=== PATIENT | male | born 1950 | race African-American/Black ===

== ENCOUNTER 2017-10-27 07:35 | Emergency (ER) | payer MEDICARE, OTHER, MEDICAID ==
[~2017-10-27] VITALS: Ht 177.8 cm; Wt 77.0 kg
[2017-10-27] MEDS ORDERED: ONDANSETRON 4MG ODT PO STA (08:21)
[2017-10-27] MEDS ORDERED: MORPHINE SULFATE 4 MG/ML CPJ (NOT FOR IM USE) IV STA (08:21)
[2017-10-27 08:42] LABS: BASOPHILS % 0.9 % (0.0-2.0); CHLORIDE 103 mEq/L (98-107); EOSINOPHILS % 0.1 % (0.0-5.0); HEMATOCRIT. 37.3 % (42.0-52.0); HEMOGLOBIN. 12.7 g/dL (14.0-18.0); INR 1.2; LYMPHOCYTES % 8.4 % (20.0-50.0); MEAN CORPUSCULAR HEMOGLOBIN 28.9 pg (28.0-32.0); MEAN PLATELET VOLUME 7.8 fl (7.4-10.4); MONOCYTES % 4.8 % (2.0-8.0); NEUTROPHILS % 85.8 % (40.0-76.0); PLATELET 252 x1000/uL (130-400); PROTHROMBIN TIME 12.2 sec (9.4-11.6); RED BLOOD CELL COUNT 4.39 mill/uL (4.7-6.1); RED CELL DISTRIBUTION WIDTH 15.9 % (11.6-14.6)
[2017-10-27 08:46] LABS: ETHANOL BLOOD < 10 mg/dL
[2017-10-27 10:41] LABS: CLARITY URINE CLEAR (CLEAR); COLOR URINE DARK YELLOW (YELLOW); KETONES URINE 2+ (NEGATIVE); LEUKOCYTE ESTERASE URINE 2+ (NEGATIVE); NITRITE URINE NEGATIVE (NEGATIVE); OCCULT BLOOD URINE TRACE (NEGATIVE); PROTEIN URINE 1+ (NEGATIVE); SPECIFIC GRAVITY URINE 1.018 (1.005-1.030)
[2017-10-27 10:53] LABS: *AMPHETAMINES SCREEN URINE NEGATIVE (NEGATIVE)
[2017-10-27 10:54] LABS: *BARBITURATES SCREEN URINE NEGATIVE (NEGATIVE); *BENZODIAZEPINES SCREEN URINE NEGATIVE (NEGATIVE); *COCAINE SCREEN URINE NEGATIVE (NEGATIVE); METHADONE URINE SCREEN NEGATIVE (NEGATIVE); OPIATES URINE SCREEN NEGATIVE (NEGATIVE)
[2017-10-27 10:55] LABS: CANNABINOID URINE SCREEN PRESUMTIVE POSITIVE (NEGATIVE); PHENCYCLIDINE URINE SCREEN NEGATIVE (NEGATIVE)
[2017-10-27] MEDS ORDERED: CEFTRIAXONE 1 G PREMIX 50 ML IV ONE (11:30)
[2017-10-27 13:38] VITALS: BP 114/79
[2017-10-29 08:24] LABS: CHLAMYDIA TRACHOMATIS NAA Negative (Negative); NEISSERIA GONORRHOEAE NAA Negative (Negative)
== END 2017-10-27 13:49 | disposition home or self-care (01) ==
LOC: ER 07:35
DX: N45.1 Epididymitis (principal); A59.9 Trichomoniasis, unspecified; Z98.890 Other specified postprocedural states; Z86.73 Personal history of transient ischemic attack (TIA), and cerebral infarction without residual deficits; F17.210 Nicotine dependence, cigarettes, uncomplicated
CPT/HCPCS: 36415; 76870; 80053; 80305; 81003; 83690; 85025; 85610; 87077; 87086; 87186; 87491; 87591; 93976; 96365; 96375; 99285; G0482; J0696; J2270; Q0162

== ENCOUNTER 2018-09-24 12:38 | Inpatient (IN) | payer MEDICARE, OTHER, MEDICAID ==
[~2018-09-24] VITALS: Ht 188 cm; Wt 72.6 kg
[2018-09-24] MEDS ORDERED: SODIUM CHLORIDE 0.9% 1,000 ML IV ONE (13:18)
[2018-09-24 13:39] LABS: BASOPHILS % 0.5 % (0.0-2.0); EOSINOPHILS % 0.6 % (0.0-5.0); HEMATOCRIT. 37.8 % (42.0-52.0); HEMOGLOBIN. 12.9 g/dL (14.0-18.0); MEAN CORPUSCULAR HEMOGLOBIN 29.1 pg (28.0-32.0); MEAN CORPUSCULAR VOLUME 84.9 fL (80.0-94.0); MEAN PLATELET VOLUME 9.2 fl (7.4-10.4); MONOCYTES % 4.6 % (2.0-8.0); NEUTROPHILS % 78.3 % (40.0-76.0); PLATELET 162 x1000/uL (130-400); RED BLOOD CELL COUNT 4.45 mill/uL (4.7-6.1); RED CELL DISTRIBUTION WIDTH 16.2 % (11.6-14.6)
[2018-09-24 13:50] LABS: CHLORIDE 108 mEq/L (98-107); PARTIAL THROMBOPLASTIN TIME 24.1 sec (23.4-31.0); PROTHROMBIN TIME 10.8 sec (9.6-11.0)
[2018-09-24 15:29] LABS: CLARITY URINE CLEAR (CLEAR); COLOR URINE YELLOW (YELLOW); KETONES URINE NEGATIVE (NEGATIVE); LEUKOCYTE ESTERASE URINE NEGATIVE (NEGATIVE); NITRITE URINE NEGATIVE (NEGATIVE); OCCULT BLOOD URINE NEGATIVE (NEGATIVE); PH URINE 5.5 (4.5-8.0); PROTEIN URINE NEGATIVE (NEGATIVE); SPECIFIC GRAVITY URINE 1.006 (1.005-1.030); UROBILINOGEN URINE 0.2 E.U./dL (0.2-1.0)
[2018-09-24 20:00] VITALS: BP 109/70
[2018-09-24] MEDS ORDERED: ONDANSETRON HCL 4MG/2ML INJ IV PRN (22:15)
[2018-09-24] MEDS ORDERED: NA PHOS,M-B/NA PHOS,DI-BA ENEMA 118ML PR PRN (22:15)
[2018-09-24] MEDS ORDERED: DOCUSATE SODIUM 100MG CAPSULE PO PRN (22:15)
[2018-09-24] MEDS ORDERED: HYDROCODONE/ACETAMINOPHEN 10/325MG TABLET PO PRN (22:15)
[2018-09-24] MEDS ORDERED: GUAIFENESIN 200MG/10ML SUGAR FREE UDC PO PRN (22:15)
[2018-09-24] MEDS ORDERED: MAGNESIUM/ALUMINUM HYDROXIDE/SIMETHICONE 30ML UDC PO PRN (22:15)
[2018-09-24] MEDS ORDERED: IPRATROPIUM/ALBUTEROL 0.5-3(2.5)MG/3ML NEB INH PRN (22:15)
[2018-09-24] MEDS ORDERED: LORAZEPAM 2MG/ML CPJ IV PRN (22:15)
[2018-09-24] MEDS ORDERED: DIPHENHYDRAMINE 50MG/ML VIAL IV PRN (22:15)
[2018-09-24] MEDS ORDERED: CLONIDINE 0.1MG TABLET PO PRN (22:15)
[2018-09-24] MEDS ORDERED: ACETAMINOPHEN 325MG TABLET PO PRN (22:15)
[2018-09-24] MEDS ORDERED: HYDROMORPHONE HCL/PF 2MG/ML CPJ IV PRN (22:15)
[2018-09-24] MEDS ORDERED: HYDRALAZINE 20MG/ML VIAL IV PRN (22:15)
[2018-09-24] MEDS ORDERED: DEXT 5%/0.45% NACL 1000ML 1,000 ML IV SCH (22:25)
[2018-09-24 23:00] VITALS: BP 109/70
[2018-09-24] MEDS ORDERED: ERGO2000 PO (23:52)
[2018-09-24] MEDS ORDERED: ACET-2853 PO (23:53)
[2018-09-24] MEDS ORDERED: OMEP20CA5 MT (23:54)
[2018-09-25] VITALS: BP 122/60
[2018-09-25 04:00] VITALS: BP 100/61
[2018-09-25 05:53] LABS: CHLORIDE 108 mEq/L (98-107)
[2018-09-25] MEDS ORDERED: DEXTROSE 50% WATER 50ML SYRINGE IV PRN (06:00)
[2018-09-25 06:03] LABS: LDL CHOLESTEROL 91 mg/dL (5-100)
[2018-09-25 06:04] LABS: CREATINE KINASE 268 IU/L (39-308); CREATINE KINASE MB FRACTION < 1.0 ng/mL (0.5-3.6); T4 FREE 1.03 ng/dL (0.76-1.46)
[2018-09-25 06:06] LABS: HDL CHOLESTEROL 59 mg/dL (40-59)
[2018-09-25] MEDS: SODIUM CHLORIDE 0.9% INJ 3ML FLUSH IVF SCH ×3 (06:21→21:12)
[2018-09-25 06:34] LABS: BASOPHILS % 0.6 % (0.0-2.0); EOSINOPHILS % 0.7 % (0.0-5.0); HEMATOCRIT. 34.9 % (42.0-52.0); LYMPHOCYTES % 25.6 % (20.0-50.0); MEAN CORPUSCULAR VOLUME 84.1 fL (80.0-94.0); MONOCYTES % 5.4 % (2.0-8.0); NEUTROPHILS % 67.7 % (40.0-76.0); PLATELET 158 x1000/uL (130-400); RED BLOOD CELL COUNT 4.15 mill/uL (4.7-6.1)
[2018-09-25] MEDS: INSULIN LISPRO 100 UNITS/ML SUBCUT SCH ×2 (07:15→12:15)
[2018-09-25] MEDS: BLOOD SUGAR DIAGNOSTIC STRIP TEST SCH ×4 (07:29→21:00)
[2018-09-25 08:00] VITALS: BP 111/64
[2018-09-25] MEDS: ASPIRIN 81MG EC TABLET PO SCH (09:04)
[2018-09-25] MEDS: ENOXAPARIN 40MG/0.4ML SYR SUBCUT SCH (09:05)
[2018-09-25 12:00] VITALS: BP 140/47
[2018-09-25] MEDS: SODIUM CHLORIDE 0.9% 1,000 ML IV SCH (15:54)
[2018-09-25] MEDS: ERGOCALCIFEROL 50000UNITS CAPSULE PO SCH (15:54)
[2018-09-25 15:55] LABS: CREATINE KINASE 192 IU/L (39-308)
[2018-09-25 15:56] LABS: CREATINE KINASE MB FRACTION < 1.0 ng/mL (0.5-3.6)
[2018-09-25 16:00] VITALS: BP 133/68
[2018-09-25 16:00] LABS: T4 FREE 1.02 ng/dL (0.76-1.46)
[2018-09-25] MEDS ORDERED: HYDROMORPHONE HCL/PF 2MG/ML CPJ IV PRN (16:15)
[2018-09-25] MEDS ORDERED: LEVOFLOXACIN 500MG PREMIX 100 ML IV SCH (17:00)
[2018-09-25 20:00] VITALS: BP_SYST 125; BP_SYST 135; BP_SYST 137; BP_DIAS 41; BP_DIAS 52; BP_DIAS 64
[2018-09-25] MEDS: LEVOFLOXACIN 500MG PREMIX 100 ML IV SCH (21:12)
[2018-09-26] VITALS: BP 128/54
[2018-09-26 05:11] VITALS: BP_SYST 135; BP_SYST 143; BP_SYST 153; BP_DIAS 59; BP_DIAS 61; BP_DIAS 71
[2018-09-26] MEDS: SODIUM CHLORIDE 0.9% 1,000 ML IV SCH ×2 (05:57→20:30)
[2018-09-26] MEDS: SODIUM CHLORIDE 0.9% INJ 3ML FLUSH IVF SCH ×2 (05:58→12:43)
[2018-09-26] MEDS: BLOOD SUGAR DIAGNOSTIC STRIP TEST SCH ×4 (05:58→20:33)
[2018-09-26 07:16] LABS: BASOPHILS % 0.6 % (0.0-2.0); EOSINOPHILS % 0.8 % (0.0-5.0); HEMOGLOBIN. 12.4 g/dL (14.0-18.0); LYMPHOCYTES % 27.9 % (20.0-50.0); MEAN CORPUSCULAR HEMOGLOBIN 28.4 pg (28.0-32.0); MEAN CORPUSCULAR VOLUME 84.7 fL (80.0-94.0); MEAN PLATELET VOLUME 9.9 fl (7.4-10.4); MONOCYTES % 6.2 % (2.0-8.0); NEUTROPHILS % 64.5 % (40.0-76.0); PLATELET 163 x1000/uL (130-400); RED BLOOD CELL COUNT 4.37 mill/uL (4.7-6.1)
[2018-09-26 07:27] LABS: CHLORIDE 107 mEq/L (98-107)
[2018-09-26 08:00] VITALS: BP 127/66
[2018-09-26] MEDS: ASPIRIN 81MG EC TABLET PO SCH (09:06)
[2018-09-26] MEDS: ENOXAPARIN 40MG/0.4ML SYR SUBCUT SCH (09:06)
[2018-09-26] MEDS: ERGOCALCIFEROL 50000UNITS CAPSULE PO SCH (09:06)
[2018-09-26 12:00] VITALS: BP 134/69
[2018-09-26 16:00] VITALS: BP_SYST 119; BP_SYST 142; BP_DIAS 58; BP_DIAS 59; BP_DIAS 77
[2018-09-26 20:00] VITALS: BP 129/64
[2018-09-26] MEDS: LEVOFLOXACIN 500MG PREMIX 100 ML IV SCH (20:30)
[2018-09-26 22:35] LABS: CREATINE KINASE 87 IU/L (39-308)
[2018-09-26 22:36] LABS: CREATINE KINASE MB FRACTION < 1.0 ng/mL (0.5-3.6)
[2018-09-27] VITALS: BP_SYST 125; BP_SYST 132; BP_SYST 146; BP_DIAS 46; BP_DIAS 66; BP_DIAS 77
[2018-09-27] MEDS: SODIUM CHLORIDE 0.9% INJ 3ML FLUSH IVF SCH ×3 (01:17→13:12)
[2018-09-27 04:00] VITALS: BP 122/71
[2018-09-27] MEDS: BLOOD SUGAR DIAGNOSTIC STRIP TEST SCH ×3 (06:09→16:51)
[2018-09-27 06:51] LABS: BASOPHILS % 0.7 % (0.0-2.0); CHLORIDE 109 mEq/L (98-107); EOSINOPHILS % 0.6 % (0.0-5.0); HEMATOCRIT. 36.9 % (42.0-52.0); HEMOGLOBIN. 12.5 g/dL (14.0-18.0); LYMPHOCYTES % 27.4 % (20.0-50.0); MEAN CORPUSCULAR HEMOGLOBIN 28.8 pg (28.0-32.0); MEAN CORPUSCULAR VOLUME 85.1 fL (80.0-94.0); MEAN PLATELET VOLUME 9.8 fl (7.4-10.4); MONOCYTES % 6.1 % (2.0-8.0); NEUTROPHILS % 65.2 % (40.0-76.0); PLATELET 165 x1000/uL (130-400); RED BLOOD CELL COUNT 4.34 mill/uL (4.7-6.1); RED CELL DISTRIBUTION WIDTH 16.4 % (11.6-14.6)
[2018-09-27 08:00] VITALS: BP 129/63
[2018-09-27] MEDS: ERGOCALCIFEROL 50000UNITS CAPSULE PO SCH (09:23)
[2018-09-27] MEDS: ASPIRIN 81MG EC TABLET PO SCH (09:23)
[2018-09-27] MEDS: ENOXAPARIN 40MG/0.4ML SYR SUBCUT SCH (09:24)
[2018-09-27] MEDS: SODIUM CHLORIDE 0.9% 1,000 ML IV SCH (11:04)
[2018-09-27 12:00] VITALS: BP_SYST 116; BP_SYST 117; BP_SYST 154; BP_DIAS 58; BP_DIAS 59; BP_DIAS 72
[2018-09-27 16:00] VITALS: BP 140/60
[2018-09-27 18:03] VITALS: BP 145/66
[2018-09-28] MEDS ORDERED: ERGOCALCIFEROL 50000UNITS CAPSULE PO SCH (09:00)
== END 2018-09-27 19:45 | disposition home or self-care (01) | DRG 73 ==
LOC: ER 12:38 → 5WST 18:19 → EDBEDREQ 18:23 → EDBEDREQTM 18:25 → ENRESERV 20:23
PROVIDERS: ADMIT Internal Medicine; ATTEND Internal Medicine
DX: G90.8 Other disorders of autonomic nervous system (principal); I50.33 Acute on chronic diastolic (congestive) heart failure; I67.82 Cerebral ischemia; N39.0 Urinary tract infection, site not specified; I47.2 Ventricular tachycardia; R00.1 Bradycardia, unspecified; E16.2 Hypoglycemia, unspecified; D64.9 Anemia, unspecified; I11.0 Hypertensive heart disease with heart failure; B96.20 Unspecified Escherichia coli [E. coli] as the cause of diseases classified elsewhere; E86.0 Dehydration; M19.90 Unspecified osteoarthritis, unspecified site; M75.102 Unspecified rotator cuff tear or rupture of left shoulder, not specified as traumatic; F17.200 Nicotine dependence, unspecified, uncomplicated; Z86.73 Personal history of transient ischemic attack (TIA), and cerebral infarction without residual deficits; Z87.11 Personal history of peptic ulcer disease; Z79.899 Other long term (current) drug therapy; Z88.6 Allergy status to analgesic agent; Z91.011 Allergy to milk products
CPT/HCPCS: 36415; 71045; 73030; 80048; 80061; 82550; 82553; 82962; 83036; 83735; 83880; 84132; 84153; 84439; 84443; 84484; 85379; 87077; 87186; 93005; 93306; 93970; 96360; 97162; 99285; J1650; J1956; J7030; G0103

== ENCOUNTER 2021-01-08 10:24 | Inpatient (IN) | payer MEDICARE, MEDICAID, OTHER ==
[~2021-01-08] VITALS: Ht 182.9 cm; Wt 70.8 kg
[~2021-01-08 10:24] MED LIST: ERGO2000 PO
[2021-01-08 10:59] LABS: BASOPHILS % 0.5 % (0.0-2.0); EOSINOPHILS % 0.1 % (0.0-5.0); HEMATOCRIT. 40.5 % (42.0-52.0); HEMOGLOBIN. 13.6 g/dL (14.0-18.0); MEAN CORPUSCULAR HEMOGLOBIN 29.6 pg (28.0-32.0); MEAN CORPUSCULAR VOLUME 88.1 fL (80.0-94.0); MONOCYTES % 6.8 % (2.0-8.0); NEUTROPHILS % 84.6 % (40.0-76.0); PLATELET 197 x1000/uL (130-400); RED CELL DISTRIBUTION WIDTH 17.1 % (11.6-14.6)
[2021-01-08] MEDS ORDERED: MORPHINE SULFATE 4 MG/ML CPJ (NOT FOR IM USE) IV ONE (11:00)
[2021-01-08 11:15] LABS: CHLORIDE 107 mEq/L (98-107)
[2021-01-08] MEDS ORDERED: MORPHINE SULFATE 2 MG/ML CPJ (NOT FOR IM USE) IV ONE (11:15)
[2021-01-08] MEDS ORDERED: AMLODIPINE 5MG TABLET PO SCH (14:00)
[2021-01-08] MEDS ORDERED: ASPIRIN 81MG EC TABLET PO SCH (14:15)
[2021-01-08] MEDS ORDERED: IOHEXOL-350 100 ML BOTTLE ONE (14:15)
[2021-01-08] MEDS ORDERED: IPRATROPIUM/ALBUTEROL 0.5-3(2.5)MG/3ML NEB HHN PRN (16:15)
[2021-01-08] MEDS ORDERED: ACETAMINOPHEN 325MG TABLET PO PRN (16:15)
[2021-01-08] MEDS ORDERED: ONDANSETRON HCL 4MG/2ML INJ IV PRN (16:15)
[2021-01-08] MEDS ORDERED: LEVOFLOXACIN 500MG PREMIX 100 ML IV SCH (17:00)
[2021-01-08] MEDS ORDERED: NALOXONE HCL 0.4MG/ML VIAL IV PRN (17:15)
[2021-01-08 17:21] LABS: *AMPHETAMINES SCREEN URINE NEGATIVE (NEGATIVE); *BARBITURATES SCREEN URINE NEGATIVE (NEGATIVE); *BENZODIAZEPINES SCREEN URINE NEGATIVE (NEGATIVE); *COCAINE SCREEN URINE NEGATIVE (NEGATIVE)
[2021-01-08 17:22] LABS: CANNABINOID URINE SCREEN PRESUMTIVE POSITIVE (NEGATIVE); METHADONE URINE SCREEN NEGATIVE (NEGATIVE); OPIATES URINE SCREEN PRESUMTIVE POSITIVE (NEGATIVE); PHENCYCLIDINE URINE SCREEN NEGATIVE (NEGATIVE)
[2021-01-08] MEDS ORDERED: ATOR10TA69 PO (18:20)
[2021-01-08] MEDS ORDERED: ASPI-1497 PO (18:20)
[2021-01-08] MEDS ORDERED: OMEP20CA14 PO (18:20)
[2021-01-08 18:27] VITALS: BP 173/76
[2021-01-08 20:00] VITALS: BP 122/51
[2021-01-08] MEDS ORDERED: CLONIDINE 0.1MG TABLET PO PRN (20:15)
[2021-01-08] MEDS ORDERED: TRAMADOL 50MG TABLET PO PRN (20:15)
[2021-01-08] MEDS: LEVOFLOXACIN 500MG PREMIX 100 ML IV SCH (22:46)
[2021-01-09] VITALS: BP 126/55
[2021-01-09] MEDS ORDERED: CHOL500010 PO (02:42)
[2021-01-09 04:00] VITALS: BP 127/53
[2021-01-09 06:48] LABS: HEMATOCRIT. 39.5 % (42.0-52.0); HEMOGLOBIN. 13.3 g/dL (14.0-18.0); MEAN CORPUSCULAR HEMOGLOBIN 29.7 pg (28.0-32.0); MEAN CORPUSCULAR VOLUME 88.2 fL (80.0-94.0); MEAN PLATELET VOLUME 9.7 fl (7.4-10.4); PLATELET 193 x1000/uL (130-400); RED BLOOD CELL COUNT 4.48 mill/uL (4.7-6.1); RED CELL DISTRIBUTION WIDTH 16.9 % (11.6-14.6)
[2021-01-09 07:01] LABS: CHLORIDE 105 mEq/L (98-107)
[2021-01-09 07:14] LABS: LDL CHOLESTEROL 148 mg/dL (5-100)
[2021-01-09 07:18] LABS: HDL CHOLESTEROL 61 mg/dL (40-59)
[2021-01-09 08:00] VITALS: BP 143/74
[2021-01-09] MEDS: ENOXAPARIN 40MG/0.4ML SYR SUBCUT SCH (09:23)
[2021-01-09] MEDS: AMLODIPINE 5MG TABLET PO SCH (09:23)
[2021-01-09] MEDS: HYDROCODONE/ACETAMINOPHEN 5/325MG TABLET PO PRN (09:24)
[2021-01-09] MEDS: ASPIRIN 81MG EC TABLET PO SCH (11:09)
[2021-01-09 12:00] VITALS: BP 125/82
[2021-01-09] MEDS ORDERED: METOPROLOL TARTRATE 25MG TABLET PO SCH (12:00)
[2021-01-09 16:00] VITALS: BP 118/64
[2021-01-09] MEDS: CLONIDINE 0.1MG TABLET PO SCH ×2 (16:03→20:51)
[2021-01-09 18:32] LABS: PLATELET ESTIMATE NORMAL
[2021-01-09 19:35] LABS: CLARITY URINE CLEAR (CLEAR); COLOR URINE DARK YELLOW (YELLOW); KETONES URINE 2+ (NEGATIVE); LEUKOCYTE ESTERASE URINE TRACE (NEGATIVE); NITRITE URINE NEGATIVE (NEGATIVE); OCCULT BLOOD URINE NEGATIVE (NEGATIVE); PH URINE 5.5 (4.5-8.0); PROTEIN URINE 1+ (NEGATIVE); SPECIFIC GRAVITY URINE 1.019 (1.005-1.030); UROBILINOGEN URINE 0.2 E.U./dL (0.2-1.0)
[2021-01-09 20:00] VITALS: BP 125/62
[2021-01-09] MEDS: FAMOTIDINE 20MG TABLET PO SCH (20:50)
[2021-01-09] MEDS: LEVOFLOXACIN 500MG PREMIX 100 ML IV SCH (20:51)
[2021-01-09] MEDS: ATORVASTATIN CALCIUM 10MG TABLET PO SCH (20:51)
[2021-01-09] MEDS: METOPROLOL TARTRATE 25MG TABLET PO SCH (20:51)
[2021-01-10] VITALS: BP 102/49
[2021-01-10 04:00] VITALS: BP 101/48
[2021-01-10] MEDS: CLONIDINE 0.1MG TABLET PO SCH ×3 (05:14→21:13)
[2021-01-10 07:06] LABS: CHLORIDE 101 mEq/L (98-107)
[2021-01-10 07:42] LABS: HEMATOCRIT. 38.4 % (42.0-52.0); HEMOGLOBIN. 12.8 g/dL (14.0-18.0); MEAN CORPUSCULAR HEMOGLOBIN 29.6 pg (28.0-32.0); MEAN CORPUSCULAR VOLUME 88.7 fL (80.0-94.0); MEAN PLATELET VOLUME 10.9 fl (7.4-10.4); PLATELET 215 x1000/uL (130-400); RED BLOOD CELL COUNT 4.33 mill/uL (4.7-6.1); RED CELL DISTRIBUTION WIDTH 16.8 % (11.6-14.6)
[2021-01-10 08:00] VITALS: BP 134/59
[2021-01-10] MEDS: ASPIRIN 81MG EC TABLET PO SCH (09:24)
[2021-01-10] MEDS: AMLODIPINE 5MG TABLET PO SCH (09:24)
[2021-01-10] MEDS: METOPROLOL TARTRATE 25MG TABLET PO SCH ×2 (09:24→21:14)
[2021-01-10] MEDS: ENOXAPARIN 40MG/0.4ML SYR SUBCUT SCH (09:25)
[2021-01-10 12:00] VITALS: BP 131/67
[2021-01-10 16:00] VITALS: BP 113/60
[2021-01-10] MEDS: METOCLOPRAMIDE HCL 10MG/2ML VIAL IV SCH ×2 (17:00→23:11)
[2021-01-10 17:23] LABS: PLATELET ESTIMATE NORMAL
[2021-01-10 20:00] VITALS: BP 143/46
[2021-01-10 20:32] LABS: CLARITY URINE CLEAR (CLEAR); COLOR URINE ORANGE (YELLOW); KETONES URINE 1+ (NEGATIVE); LEUKOCYTE ESTERASE URINE TRACE (NEGATIVE); NITRITE URINE NEGATIVE (NEGATIVE); OCCULT BLOOD URINE NEGATIVE (NEGATIVE); PH URINE 5.5 (4.5-8.0); PROTEIN URINE 1+ (NEGATIVE); SPECIFIC GRAVITY URINE 1.018 (1.005-1.030)
[2021-01-10] MEDS: FAMOTIDINE 20MG TABLET PO SCH (21:13)
[2021-01-10] MEDS: ATORVASTATIN CALCIUM 10MG TABLET PO SCH (21:13)
[2021-01-10] MEDS: LEVOFLOXACIN 500MG PREMIX 100 ML IV SCH (21:14)
[2021-01-11] VITALS (7 sets, daily range): BP systolic 96–134; BP diastolic 43–91
[2021-01-11] MEDS: METOCLOPRAMIDE HCL 10MG/2ML VIAL IV SCH ×4 (06:15→23:04)
[2021-01-11] MEDS: CLONIDINE 0.1MG TABLET PO SCH (06:16)
[2021-01-11 07:23] LABS: HEMATOCRIT. 36.9 % (42.0-52.0); HEMOGLOBIN. 12.3 g/dL (14.0-18.0); MEAN CORPUSCULAR HEMOGLOBIN 29.4 pg (28.0-32.0); MEAN CORPUSCULAR VOLUME 88.3 fL (80.0-94.0); MEAN PLATELET VOLUME 10.1 fl (7.4-10.4); PLATELET 210 x1000/uL (130-400); RED BLOOD CELL COUNT 4.18 mill/uL (4.7-6.1); RED CELL DISTRIBUTION WIDTH 17.3 % (11.6-14.6)
[2021-01-11 08:39] LABS: CHLORIDE 102 mEq/L (98-107)
[2021-01-11] MEDS: METOPROLOL TARTRATE 25MG TABLET PO SCH ×2 (09:00→21:28)
[2021-01-11] MEDS: AMLODIPINE 5MG TABLET PO SCH (09:00)
[2021-01-11] MEDS: ASPIRIN 81MG EC TABLET PO SCH (09:35)
[2021-01-11] MEDS: ENOXAPARIN 40MG/0.4ML SYR SUBCUT SCH (09:36)
[2021-01-11] MEDS: HYDROCODONE/ACETAMINOPHEN 5/325MG TABLET PO PRN ×2 (10:30→17:41)
[2021-01-11 13:08] LABS: PLATELET ESTIMATE NORMAL
[2021-01-11 13:42] LABS: BG BASE EXCESS 1.4 mmol/L (-2.0-2.0); BG CARBOXYHEMOGLOBIN 0.5 % (0.5-1.5); BG DEOXYHEMOGLOBIN 6.2 % (0.0-5.0); BG HCO3 ACT 24.8 mmol/L (22.0-26.0); BG METHEMOGLOBIN 0.3 % (0.0-1.5); BG OXYGEN SATURATION 93.8 % (92.0-98.5); BG PCO2 35.2 mmHg (35.0-45.0); BG PH 7.466 (7.350-7.450); BG PO2 69.1 mmHg (75.0-100.0); BG SAMPLE SITE RIGHT RADIAL; BG TOTAL HEMOGLOBIN 13.3 g/dL (12.0-18.0); BG VENT MODE ROOM AIR
[2021-01-11] MEDS ORDERED: IPRATROPIUM/ALBUTEROL 0.5-3(2.5)MG/3ML NEB HHN SCH (15:00)
[2021-01-11] MEDS: LEVOFLOXACIN 500MG PREMIX 100 ML IV SCH (21:27)
[2021-01-11] MEDS: FAMOTIDINE 20MG TABLET PO SCH (21:27)
[2021-01-11] MEDS: ATORVASTATIN CALCIUM 10MG TABLET PO SCH (21:28)
[2021-01-12] VITALS: BP 112/66
[2021-01-12 04:00] VITALS: BP 116/59
[2021-01-12] MEDS: METOCLOPRAMIDE HCL 10MG/2ML VIAL IV SCH ×2 (06:26→12:06)
[2021-01-12 08:00] VITALS: BP 126/59
[2021-01-12 08:15] LABS: HEMATOCRIT. 34.7 % (42.0-52.0); HEMOGLOBIN. 11.8 g/dL (14.0-18.0); MEAN CORPUSCULAR HEMOGLOBIN 29.5 pg (28.0-32.0); MEAN CORPUSCULAR VOLUME 87.3 fL (80.0-94.0); MEAN PLATELET VOLUME 10.1 fl (7.4-10.4); PLATELET 275 x1000/uL (130-400); RED BLOOD CELL COUNT 3.98 mill/uL (4.7-6.1); RED CELL DISTRIBUTION WIDTH 16.7 % (11.6-14.6)
[2021-01-12] MEDS: ASPIRIN 81MG EC TABLET PO SCH (08:26)
[2021-01-12] MEDS: METOPROLOL TARTRATE 25MG TABLET PO SCH (08:27)
[2021-01-12] MEDS: ENOXAPARIN 40MG/0.4ML SYR SUBCUT SCH (08:27)
[2021-01-12 08:44] LABS: CHLORIDE 102 mEq/L (98-107)
[2021-01-12] MEDS ORDERED: AMLODIPINE 2.5MG TABLET PO SCH (09:00)
[2021-01-12 11:58] LABS: PLATELET ESTIMATE NORMAL
[2021-01-12 12:00] VITALS: BP 127/64
[2021-01-12] MEDS ORDERED: ALBU90AE INH (12:23)
[2021-01-12] MEDS ORDERED: LEVO500T89 MT (12:23)
[2021-01-12] MEDS ORDERED: LIP40 MT (12:23)
[2021-01-12] MEDS ORDERED: METO25TA6 MT (12:23)
[2021-01-12 13:24] VITALS: BP 127/64
[2021-01-12] MEDS ORDERED: ATORVASTATIN CALCIUM 40MG TABLET PO SCH (21:00)
== END 2021-01-12 14:21 | disposition home health service (06) | DRG 205 ==
LOC: ER 10:24 → EDBEDREQTM 12:50 → EDBEDREQ 12:50 → ENRESERV 13:51 → 7EST 18:12
PROVIDERS: ADMIT Internal Medicine; ATTEND Internal Medicine
DX: M94.0 Chondrocostal junction syndrome [Tietze] (principal); J18.9 Pneumonia, unspecified organism; J44.0 Chronic obstructive pulmonary disease with (acute) lower respiratory infection; N39.0 Urinary tract infection, site not specified; R65.10 Systemic inflammatory response syndrome (SIRS) of non-infectious origin without acute organ dysfunction; D35.02 Benign neoplasm of left adrenal gland; E78.5 Hyperlipidemia, unspecified; I10 Essential (primary) hypertension; I25.10 Atherosclerotic heart disease of native coronary artery without angina pectoris; K80.20 Calculus of gallbladder without cholecystitis without obstruction; Z20.822 Contact with and (suspected) exposure to COVID-19; F17.210 Nicotine dependence, cigarettes, uncomplicated; M48.02 Spinal stenosis, cervical region; M47.812 Spondylosis without myelopathy or radiculopathy, cervical region; M51.24 Other intervertebral disc displacement, thoracic region; R00.0 Tachycardia, unspecified; I95.9 Hypotension, unspecified; M48.04 Spinal stenosis, thoracic region; G89.29 Other chronic pain; Z86.718 Personal history of other venous thrombosis and embolism; Z86.73 Personal history of transient ischemic attack (TIA), and cerebral infarction without residual deficits; Z87.11 Personal history of peptic ulcer disease; Z88.5 Allergy status to narcotic agent; Z88.6 Allergy status to analgesic agent; Z91.011 Allergy to milk products; Z79.899 Other long term (current) drug therapy; Z79.82 Long term (current) use of aspirin; Z82.49 Family history of ischemic heart disease and other diseases of the circulatory system
CPT/HCPCS: 36415; 36600; 71045; 71275; 72128; 72131; 72141; 72146; 74018; 74176; 80048; 80053; 80061; 80305; 81003; 82375; 82805; 83880; 84145; 84153; 84484; 85025; 87426; 93005; 93306; 93970; 97116; 97162; 99285; J1650; J1956; J2270; J2765; J7040; Q9967; U0003; U0005; G0103

== ENCOUNTER 2021-09-12 05:11 | Inpatient (IN) | payer MEDICARE, MEDICAID, OTHER ==
[~2021-09-12] VITALS: Ht 188 cm; Wt 72.1 kg
[2021-09-12] VITALS (33 sets, daily range): BP systolic 65–150; BP diastolic 23–79
[~2021-09-12 05:11] MED LIST changes: +ALBU90AE INH; +ASPI-1497 PO; +CHOL500010 PO; -ERGO2000 PO; +LEVO500T90 MT; +LIP40 MT; +METO25TA6 MT; +OMEP20CA14 PO
[2021-09-12] MEDS ORDERED: THROMBIN (BOVINE) 5000 UNITS/VIAL TOP ONE ×2 (06:54→06:55)
[2021-09-12] MEDS ORDERED: GENTAMICIN SULF 40MG/ML 2ML VIAL ONE (06:55)
[2021-09-12] MEDS ORDERED: BACITRACIN 15GM TUBE TOP ONE (06:55)
[2021-09-12] MEDS ORDERED: LIDOCAINE HCL/EPINEPHRINE 1%-EPI 1:100,000 20 ML VIAL ONE (06:55)
[2021-09-12] MEDS ORDERED: ACET-2708 MT (09:01)
[2021-09-12] MEDS ORDERED: ONDANSETRON HCL 4MG/2ML INJ IV PRN ×2 (11:45→14:15)
[2021-09-12] MEDS ORDERED: NALOXONE HCL 0.4MG/ML VIAL IV PRN (12:00)
[2021-09-12] MEDS ORDERED: ETOMIDATE 2MG/ML 10ML VIAL IV ONE (12:17)
[2021-09-12] MEDS ORDERED: NEOSTIGMINE METHYLSULFATE 1MG/ML 10 ML VIAL ONE (12:17)
[2021-09-12] MEDS ORDERED: SUCCINYLCHOLINE CHLORIDE 200MG/10ML IV ONE (12:17)
[2021-09-12] MEDS ORDERED: DEXAMETHASONE 4MG/ML 1ML VIAL ONE (12:17)
[2021-09-12] MEDS ORDERED: ROCURONIUM BROMIDE 10MG/ML VIAL 5ML IV ONE (12:17)
[2021-09-12] MEDS ORDERED: ONDANSETRON HCL 4MG/2ML INJ ONE (12:17)
[2021-09-12] MEDS ORDERED: MIDAZOLAM HCL 2 MG/2 ML VIAL ONE (12:18)
[2021-09-12] MEDS ORDERED: GLYCOPYRROLATE 0.2 MG/ML 2ML VIAL ONE ×2 (12:18)
[2021-09-12] MEDS ORDERED: FENTANYL CITRATE/PF 50MCG/ML 2ML VIAL ONE (12:19)
[2021-09-12] MEDS ORDERED: PROPOFOL 200MG/20ML VIAL IV ONE ×2 (12:41→13:18)
[2021-09-12] MEDS ORDERED: CEFAZOLIN SODIUM 1000MG/VIAL IV SCH (14:00)
[2021-09-12] MEDS ORDERED: LABETALOL 5MG/ML SYR 20 MG/4 ML SYRINGE IV PRN (14:15)
[2021-09-12] MEDS ORDERED: MEPERIDINE HCL/PF 25MG/ML CPJ IV PRN (14:15)
[2021-09-12] MEDS: HYDROMORPHONE HCL/PF 2MG/ML CPJ IV PRN ×4 (14:23→14:44)
[2021-09-12] MEDS: DEXT 5%/LACTATED RINGERS 1,000 ML IV SCH ×2 (15:00→22:08)
[2021-09-12] MEDS: NICARDIPINE 100 MG in SODIUM CHLORIDE 0.9% 60 ML IV PRN ×2 (16:30→23:53)
[2021-09-12] MEDS: CEFAZOLIN 1000MG PREMIX 50 ML IV SCH ×2 (17:03→23:53)
[2021-09-12] MEDS: MORPHINE SULFATE 4 MG/ML CPJ (NOT FOR IM USE) IV PRN (22:09)
[2021-09-12 22:54] LABS: CLARITY URINE CLEAR (CLEAR); COLOR URINE YELLOW (YELLOW); KETONES URINE NEGATIVE (NEGATIVE); LEUKOCYTE ESTERASE URINE TRACE (NEGATIVE); NITRITE URINE NEGATIVE (NEGATIVE); OCCULT BLOOD URINE NEGATIVE (NEGATIVE); PROTEIN URINE NEGATIVE (NEGATIVE); SPECIFIC GRAVITY URINE 1.013 (1.005-1.030); UROBILINOGEN URINE 0.2 E.U./dL (0.2-1.0)
[2021-09-13] VITALS (95 sets, daily range): BP systolic 96–138; BP diastolic 37–89
[2021-09-13] MEDS: MORPHINE SULFATE 4 MG/ML CPJ (NOT FOR IM USE) IV PRN ×5 (05:18→20:25)
[2021-09-13 05:32] LABS: BASOPHILS % 0.5 % (0.0-2.0); HEMATOCRIT. 37.1 % (42.0-52.0); HEMOGLOBIN. 12.4 g/dL (14.0-18.0); LYMPHOCYTES % 8.5 % (20.0-50.0); MEAN PLATELET VOLUME 11.1 fl (7.4-10.4); MONOCYTES % 5.6 % (2.0-8.0); NEUTROPHILS % 85.4 % (40.0-76.0); PLATELET 205 x1000/uL (130-400); RED BLOOD CELL COUNT 4.59 mill/uL (4.7-6.1); RED CELL DISTRIBUTION WIDTH 16.6 % (11.6-14.6)
[2021-09-13 05:45] LABS: CHLORIDE 108 mEq/L (98-107); PHOSPHORUS 2.9 mg/dL (2.5-4.9)
[2021-09-13 05:52] LABS: INR 1.1; PARTIAL THROMBOPLASTIN TIME 26.3 sec (23.4-31.0); PROTHROMBIN TIME 11.6 sec (9.6-11.0)
[2021-09-13] MEDS: DEXT 5%/LACTATED RINGERS 1,000 ML IV SCH ×2 (08:20→15:17)
[2021-09-13] MEDS: NICARDIPINE 100 MG in SODIUM CHLORIDE 0.9% 60 ML IV PRN (08:21)
[2021-09-13] MEDS: CEFAZOLIN 1000MG PREMIX 50 ML IV SCH (11:30)
[2021-09-13] MEDS: OMEPRAZOLE 20MG CAPSULE EXTENDED RELEASE PO SCH (11:31)
[2021-09-13] MEDS: AMLODIPINE 5MG TABLET PO SCH (11:31)
[2021-09-13] MEDS: METOPROLOL TARTRATE 25MG TABLET PO SCH ×2 (11:32→20:11)
[2021-09-13] MEDS ORDERED: POTASSIUM CHLORIDE 20MEQ/PACKET PO NR (15:30)
[2021-09-13] MEDS: ATORVASTATIN CALCIUM 40MG TABLET PO SCH (20:11)
[2021-09-14] VITALS (41 sets, daily range): BP systolic 113–134; BP diastolic 47–76
[2021-09-14] MEDS: DEXT 5%/LACTATED RINGERS 1,000 ML IV SCH ×2 (04:29→15:40)
[2021-09-14 05:16] LABS: BASOPHILS % 0.5 % (0.0-2.0); EOSINOPHILS % 0.3 % (0.0-5.0); HEMATOCRIT. 35.1 % (42.0-52.0); HEMOGLOBIN. 11.7 g/dL (14.0-18.0); LYMPHOCYTES % 11.4 % (20.0-50.0); MEAN CORPUSCULAR HEMOGLOBIN 27.2 pg (28.0-32.0); MEAN CORPUSCULAR VOLUME 81.5 fL (80.0-94.0); MONOCYTES % 6.9 % (2.0-8.0); NEUTROPHILS % 80.9 % (40.0-76.0); PLATELET 169 x1000/uL (130-400); RED BLOOD CELL COUNT 4.31 mill/uL (4.7-6.1); RED CELL DISTRIBUTION WIDTH 16.6 % (11.6-14.6)
[2021-09-14 05:30] LABS: CHLORIDE 106 mEq/L (98-107)
[2021-09-14] MEDS: MORPHINE SULFATE 4 MG/ML CPJ (NOT FOR IM USE) IV PRN ×2 (05:47→08:35)
[2021-09-14] MEDS: METOPROLOL TARTRATE 25MG TABLET PO SCH ×2 (08:33→20:54)
[2021-09-14] MEDS: OMEPRAZOLE 20MG CAPSULE EXTENDED RELEASE PO SCH (08:34)
[2021-09-14] MEDS: AMLODIPINE 5MG TABLET PO SCH (08:34)
[2021-09-14] MEDS: ATORVASTATIN CALCIUM 40MG TABLET PO SCH (20:54)
[2021-09-15] VITALS: BP 130/77
[2021-09-15 04:00] VITALS: BP 114/58
[2021-09-15] MEDS: OMEPRAZOLE 20MG CAPSULE EXTENDED RELEASE PO SCH (06:23)
[2021-09-15 08:00] VITALS: BP 117/62
[2021-09-15] MEDS: METOPROLOL TARTRATE 25MG TABLET PO SCH ×2 (08:35→21:00)
[2021-09-15] MEDS: AMLODIPINE 5MG TABLET PO SCH (08:35)
[2021-09-15] MEDS ORDERED: BENZONATATE 100MG CAPSULE PO PRN (11:00)
[2021-09-15 12:00] VITALS: BP 121/53
[2021-09-15] MEDS: GUAIFENESIN 600MG ER TABLET PO SCH ×2 (12:52→21:57)
[2021-09-15 16:00] VITALS: BP 119/64
[2021-09-15] MEDS: POLYETHYLENE GLYCOL 3350 (17GM) 1 DOSE PACK PO SCH (16:35)
[2021-09-15 20:00] VITALS: BP 105/58
[2021-09-15] MEDS: ATORVASTATIN CALCIUM 40MG TABLET PO SCH (21:57)
[2021-09-16] VITALS: BP 128/62
[2021-09-16 04:00] VITALS: BP 125/65
[2021-09-16] MEDS: OMEPRAZOLE 20MG CAPSULE EXTENDED RELEASE PO SCH (06:50)
[2021-09-16 08:00] VITALS: BP 103/58
[2021-09-16] MEDS: CLOTRIMAZOLE/BETAMETHASONE 1/0.05% CREAM 15GM TOP SCH ×2 (08:41→22:24)
[2021-09-16] MEDS: GUAIFENESIN 600MG ER TABLET PO SCH ×2 (08:41→22:24)
[2021-09-16] MEDS: POLYETHYLENE GLYCOL 3350 (17GM) 1 DOSE PACK PO SCH (08:41)
[2021-09-16] MEDS: AMLODIPINE 5MG TABLET PO SCH (08:42)
[2021-09-16] MEDS: METOPROLOL TARTRATE 25MG TABLET PO SCH ×2 (08:42→22:23)
[2021-09-16 12:00] VITALS: BP 113/57
[2021-09-16 16:00] VITALS: BP 109/61
[2021-09-16] MEDS ORDERED: BISACODYL 5MG TABLET PO PRN (17:30)
[2021-09-16] MEDS ORDERED: LACTULOSE 20G/30ML UDC PO PRN (17:30)
[2021-09-16 20:00] VITALS: BP 126/61
[2021-09-16] MEDS: ATORVASTATIN CALCIUM 40MG TABLET PO SCH (22:23)
[2021-09-17] VITALS: BP 117/65
[2021-09-17 04:00] VITALS: BP 110/69
[2021-09-17] MEDS: OMEPRAZOLE 20MG CAPSULE EXTENDED RELEASE PO SCH (07:30)
[2021-09-17 08:00] VITALS: BP 129/61
[2021-09-17] MEDS: POLYETHYLENE GLYCOL 3350 (17GM) 1 DOSE PACK PO SCH (09:00)
[2021-09-17] MEDS: GUAIFENESIN 600MG ER TABLET PO SCH ×2 (09:01→22:00)
[2021-09-17] MEDS: AMLODIPINE 5MG TABLET PO SCH (09:01)
[2021-09-17] MEDS: METOPROLOL TARTRATE 25MG TABLET PO SCH ×2 (09:02→22:00)
[2021-09-17] MEDS: CLOTRIMAZOLE/BETAMETHASONE 1/0.05% CREAM 15GM TOP SCH ×2 (09:03→22:01)
[2021-09-17 12:00] VITALS: BP 120/56
[2021-09-17 16:00] VITALS: BP 111/57
[2021-09-17 17:14] LABS: BASOPHILS % 0.6 % (0.0-2.0); EOSINOPHILS % 1.6 % (0.0-5.0); HEMATOCRIT. 34.9 % (42.0-52.0); HEMOGLOBIN. 11.5 g/dL (14.0-18.0); LYMPHOCYTES % 13.9 % (20.0-50.0); MEAN CORPUSCULAR HEMOGLOBIN 27.1 pg (28.0-32.0); MEAN CORPUSCULAR VOLUME 82.3 fL (80.0-94.0); MEAN PLATELET VOLUME 10.6 fl (7.4-10.4); NEUTROPHILS % 77.9 % (40.0-76.0); PLATELET 203 x1000/uL (130-400); RED BLOOD CELL COUNT 4.24 mill/uL (4.7-6.1); RED CELL DISTRIBUTION WIDTH 16.6 % (11.6-14.6)
[2021-09-17 17:29] LABS: CHLORIDE 103 mEq/L (98-107)
[2021-09-17 20:00] VITALS: BP 128/65
[2021-09-17] MEDS: ATORVASTATIN CALCIUM 40MG TABLET PO SCH (22:00)
[2021-09-18] VITALS: BP_SYST 107; BP_SYST 124; BP_DIAS 52; BP_DIAS 67
[2021-09-18 04:00] VITALS: BP 123/51
[2021-09-18 08:00] VITALS: BP 123/57
[2021-09-18 08:33] LABS: BASOPHILS % 0.8 % (0.0-2.0); EOSINOPHILS % 1.7 % (0.0-5.0); HEMATOCRIT. 35.8 % (42.0-52.0); HEMOGLOBIN. 11.9 g/dL (14.0-18.0); LYMPHOCYTES % 14.8 % (20.0-50.0); MEAN CORPUSCULAR HEMOGLOBIN 26.8 pg (28.0-32.0); MEAN CORPUSCULAR VOLUME 80.3 fL (80.0-94.0); MEAN PLATELET VOLUME 9.9 fl (7.4-10.4); MONOCYTES % 5.3 % (2.0-8.0); NEUTROPHILS % 77.4 % (40.0-76.0); PLATELET 219 x1000/uL (130-400); RED BLOOD CELL COUNT 4.46 mill/uL (4.7-6.1); RED CELL DISTRIBUTION WIDTH 16.3 % (11.6-14.6)
[2021-09-18 08:45] LABS: CHLORIDE 102 mEq/L (98-107)
[2021-09-18 08:51] LABS: HDL CHOLESTEROL 33 mg/dL (40-59); LDL CHOLESTEROL 105 mg/dL (5-100)
[2021-09-18] MEDS: POLYETHYLENE GLYCOL 3350 (17GM) 1 DOSE PACK PO SCH (09:36)
[2021-09-18] MEDS: OMEPRAZOLE 20MG CAPSULE EXTENDED RELEASE PO SCH (09:36)
[2021-09-18] MEDS: AMLODIPINE 5MG TABLET PO SCH (09:37)
[2021-09-18] MEDS: GUAIFENESIN 600MG ER TABLET PO SCH ×2 (09:37→21:38)
[2021-09-18] MEDS: METOPROLOL TARTRATE 25MG TABLET PO SCH ×2 (09:37→21:38)
[2021-09-18] MEDS: CLOTRIMAZOLE/BETAMETHASONE 1/0.05% CREAM 15GM TOP SCH ×2 (09:43→21:38)
[2021-09-18 12:00] VITALS: BP 116/50
[2021-09-18 16:00] VITALS: BP 112/52
[2021-09-18 20:00] VITALS: BP 126/57
[2021-09-18] MEDS: ATORVASTATIN CALCIUM 40MG TABLET PO SCH (21:38)
[2021-09-19] VITALS: BP 127/61
[2021-09-19 04:00] VITALS: BP 141/60
[2021-09-19 06:38] LABS: BASOPHILS % 0.9 % (0.0-2.0); EOSINOPHILS % 1.8 % (0.0-5.0); HEMATOCRIT. 33.7 % (42.0-52.0); HEMOGLOBIN. 11.6 g/dL (14.0-18.0); LYMPHOCYTES % 17.4 % (20.0-50.0); MEAN CORPUSCULAR HEMOGLOBIN 27.1 pg (28.0-32.0); MEAN CORPUSCULAR VOLUME 79.1 fL (80.0-94.0); MEAN PLATELET VOLUME 9.9 fl (7.4-10.4); MONOCYTES % 5.9 % (2.0-8.0); PLATELET 218 x1000/uL (130-400); RED BLOOD CELL COUNT 4.26 mill/uL (4.7-6.1); RED CELL DISTRIBUTION WIDTH 16.5 % (11.6-14.6)
[2021-09-19 06:43] LABS: CHLORIDE 103 mEq/L (98-107)
[2021-09-19 08:00] VITALS: BP 115/61
[2021-09-19] MEDS: GUAIFENESIN 600MG ER TABLET PO SCH ×2 (09:00→21:29)
[2021-09-19] MEDS: OMEPRAZOLE 20MG CAPSULE EXTENDED RELEASE PO SCH (09:00)
[2021-09-19] MEDS: METOPROLOL TARTRATE 25MG TABLET PO SCH ×2 (09:00→21:29)
[2021-09-19] MEDS: POLYETHYLENE GLYCOL 3350 (17GM) 1 DOSE PACK PO SCH (09:00)
[2021-09-19] MEDS: AMLODIPINE 5MG TABLET PO SCH (09:01)
[2021-09-19] MEDS: CLOTRIMAZOLE/BETAMETHASONE 1/0.05% CREAM 15GM TOP SCH ×2 (09:06→21:29)
[2021-09-19 12:00] VITALS: BP 133/60
[2021-09-19 16:00] VITALS: BP 117/56
[2021-09-19 20:00] VITALS: BP 119/56
[2021-09-19] MEDS: ATORVASTATIN CALCIUM 40MG TABLET PO SCH (21:29)
[2021-09-20] VITALS: BP 107/67
[2021-09-20 04:00] VITALS: BP 110/56
[2021-09-20] MEDS ORDERED: FAMOTIDINE 20MG TABLET PO SCH (07:20)
[2021-09-20 08:00] VITALS: BP 128/66
[2021-09-20] MEDS: POLYETHYLENE GLYCOL 3350 (17GM) 1 DOSE PACK PO SCH (09:54)
[2021-09-20] MEDS: AMLODIPINE 5MG TABLET PO SCH (09:55)
[2021-09-20] MEDS: METOPROLOL TARTRATE 25MG TABLET PO SCH (09:55)
[2021-09-20] MEDS: CLOTRIMAZOLE/BETAMETHASONE 1/0.05% CREAM 15GM TOP SCH (09:56)
[2021-09-20] MEDS: GUAIFENESIN 600MG ER TABLET PO SCH (09:56)
[2021-09-20 15:55] VITALS: BP 135/59
== END 2021-09-20 16:20 | disposition home health service (06) | DRG 471 ==
LOC: OR 05:11 → MICUNO 18:06 → 6EST 09-14 16:04
PROVIDERS: ADMIT Internal Medicine; ATTEND Internal Medicine
PROC: 0RG20A0 Fusion of 2 or more Cervical Vertebral Joints with Interbody Fusion Device, Anterior Approach, Anterior Column, Open Approach (ICD-10-PCS; principal; 2021-09-12)
PROC: 0RB30ZZ Excision of Cervical Vertebral Disc, Open Approach (ICD-10-PCS; 2021-09-12)
PROC: 0HBNXZZ Excision of Left Foot Skin, External Approach (ICD-10-PCS; 2021-09-14)
DX: M48.02 Spinal stenosis, cervical region (principal); G82.50 Quadriplegia, unspecified; M47.12 Other spondylosis with myelopathy, cervical region; I10 Essential (primary) hypertension; E78.5 Hyperlipidemia, unspecified; B35.3 Tinea pedis; G89.29 Other chronic pain; I73.9 Peripheral vascular disease, unspecified; L85.9 Epidermal thickening, unspecified; Z20.822 Contact with and (suspected) exposure to COVID-19; J44.9 Chronic obstructive pulmonary disease, unspecified; L84 Corns and callosities; R26.89 Other abnormalities of gait and mobility; Z79.2 Long term (current) use of antibiotics; Z79.82 Long term (current) use of aspirin; Z79.899 Other long term (current) drug therapy; Z88.6 Allergy status to analgesic agent; Z91.011 Allergy to milk products; Z91.09 Other allergy status, other than to drugs and biological substances
CPT/HCPCS: 36415; 72040; 72141; 76000; 80048; 80061; 81003; 83735; 84100; 84484; 85025; 86850; 86900; 87426; 88304; 88311; 93005; 93306; 93922; 93970; 95925; 95926; 95928; 95929; 97110; 97116; 97162; 97166; 97530; 97535; C1713; J0330; J0690; J1100; J1170; J1580; J2250; J2270; J2405; J2704; J2710; J3010; J3490; J7050; J7121; A5200; C1762

== ENCOUNTER 2023-05-22 13:40 | Inpatient (IN) | payer MEDICARE, MEDICAID, OTHER ==
[~2023-05-22] VITALS: Ht 182.9 cm; Wt 69.1 kg
[~2023-05-22 13:40] MED LIST changes: +ACET-2708 MT; +LEVO-65 MT; -LEVO500T90 MT
[2023-05-22] MEDS ORDERED: NITROGLYCERIN 0.4MG TABLET SL SL PRN (14:15)
[2023-05-22 14:21] LABS: BASOPHILS % 1.1 % (0.0-2.0); EOSINOPHILS % 1.1 % (0.0-5.0); HEMATOCRIT. 36.5 % (42.0-52.0); LYMPHOCYTES % 17.5 % (20.0-50.0); MEAN CORPUSCULAR HGB CONC 32.9 g/dL (31.0-37.0); MEAN CORPUSCULAR VOLUME 88.1 fL (80.0-94.0); MEAN PLATELET VOLUME 10.1 fl (7.4-10.4); MONOCYTES % 3.8 % (2.0-8.0); NEUTROPHILS % 76.5 % (40.0-76.0); PLATELET 160 x1000/uL (130-400); RED BLOOD CELL COUNT 4.14 mill/uL (4.7-6.1); RED CELL DISTRIBUTION WIDTH 17.5 % (11.6-14.6); WHITE BLOOD COUNT 8.2 x1000/uL (4.5-11.0)
[2023-05-22 14:38] LABS: ALANINE AMINOTRANSFERASE 16 IU/L (10-49); ALBUMIN 4.3 g/dL (3.2-4.8); ASPARTATE AMINOTRANSFERASE 21 IU/L (<34); BILIRUBIN TOTAL 0.7 mg/dL (0.1-1.0); CALCIUM 9.2 mg/dL (8.7-10.4); CARBON DIOXIDE 21 mEq/L (21-32); CHLORIDE 111 mEq/L (98-107); CREATININE 0.9 mg/dL (0.6-1.3); GLUCOSE 106 mg/dL (70-105); POTASSIUM 3.8 mEq/L (3.5-5.1); PROTEIN TOTAL 6.9 g/dL (6.0-8.3); SODIUM 142 mEq/L (136-145); UREA NITROGEN BLOOD 15 mg/dL (9-23)
[2023-05-22 14:43] LABS: TROPONIN I HIGH SENSITIVITY < 4 ng/L (3.0-53)
[2023-05-22 14:44] LABS: PARTIAL THROMBOPLASTIN TIME < 21.0 sec (23.4-31.0); PROTHROMBIN TIME 11.4 sec (9.6-11.0)
[2023-05-22] MEDS: SODIUM CHLORIDE 0.9% 1,000 ML IV ONE (15:12)
[2023-05-22] MEDS: ASPIRIN 81MG TABLET PO ONE (15:13)
[2023-05-22] MEDS: IOHEXOL-350 100 ML BOTTLE ONE (15:59)
[2023-05-22 18:12] VITALS: BP 120/46; PULSE 73; RESP 18; TEMP 98.5
[2023-05-22] MEDS ORDERED: ONDANSETRON HCL 4MG/2ML INJ IV PRN (19:00)
[2023-05-22] MEDS ORDERED: CLONIDINE 0.1MG TABLET PO PRN (19:00)
[2023-05-22] MEDS ORDERED: IPRATROPIUM/ALBUTEROL 0.5-3(2.5)MG/3ML NEB HHN PRN (19:00)
[2023-05-22] MEDS ORDERED: HYDROCODONE/ACETAMINOPHEN 5/325MG TABLET PO PRN (19:00)
[2023-05-22] MEDS: ASPIRIN 81MG TABLET PO SCH (19:15)
[2023-05-22 20:07] LABS: HEPATITIS B SURFACE ANTIGEN NEGATIVE (Negative); HEPATITIS C AB NON REACTIVE (Neg) (Negative)
[2023-05-22 20:10] VITALS: BP 134/69; PULSE 75; RESP 22; TEMP 98.2
[2023-05-22] MEDS: ENOXAPARIN 40MG/0.4ML SYR SUBCUT SCH (22:10)
[2023-05-22 23:53] LABS: CREATINE KINASE 65 IU/L (46-171); CREATINE KINASE MB FRACTION < 0.5 ng/mL (0.5-3.6); TROPONIN I HIGH SENSITIVITY 4 ng/L (3.0-53)
[2023-05-23 00:10] VITALS: BP 129/57; PULSE 70; RESP 17; TEMP 98.8
[2023-05-23 04:10] VITALS: BP 139/59; PULSE 86; RESP 15; TEMP 98.6
[2023-05-23 06:22] LABS: CREATINE KINASE 69 IU/L (46-171); CREATINE KINASE MB FRACTION < 0.5 ng/mL (0.5-3.6); TROPONIN I HIGH SENSITIVITY 6 ng/L (3.0-53)
[2023-05-23] MEDS: ACETAMINOPHEN 325MG TABLET PO PRN (07:06)
[2023-05-23 08:00] VITALS: BP 121/34; PULSE 64; RESP 25; TEMP 98.3
[2023-05-23 12:00] VITALS: BP_SYST 122; BP_SYST 133; BP_DIAS 55; BP_DIAS 64; BP_DIAS 74; PULSE 66; RESP 21; TEMP 98.9
[2023-05-23 14:21] LABS: CLARITY URINE CLEAR (CLEAR); COLOR URINE YELLOW (YELLOW); GLUCOSE URINE NEGATIVE (NEGATIVE); KETONES URINE TRACE (NEGATIVE); LEUKOCYTE ESTERASE URINE NEGATIVE (NEGATIVE); NITRITE URINE NEGATIVE (NEGATIVE); OCCULT BLOOD URINE NEGATIVE (NEGATIVE); PROTEIN URINE NEGATIVE (NEGATIVE); SPECIFIC GRAVITY URINE 1.017 (1.005-1.030)
[2023-05-23 14:43] LABS: *AMPHETAMINES SCREEN URINE NEGATIVE (NEGATIVE); *BARBITURATES SCREEN URINE NEGATIVE (NEGATIVE); *BENZODIAZEPINES SCREEN URINE NEGATIVE (NEGATIVE); *COCAINE SCREEN URINE NEGATIVE (NEGATIVE); CANNABINOID URINE SCREEN PRESUMPTIVE POSITIVE (NEGATIVE); ECSTASY MDMA SCREEN URINE NEGATIVE (NEGATIVE); METHADONE URINE SCREEN Neg (NEGATIVE); OPIATES URINE SCREEN NEGATIVE (NEGATIVE); PHENCYCLIDINE URINE SCREEN NEGATIVE (NEGATIVE)
[2023-05-23 16:00] VITALS: BP 133/64; PULSE 64; RESP 20; TEMP 98.7
[2023-05-23 16:29] LABS: T4 FREE 1.02 ng/dL (0.89-1.76); THYROID STIMULATING HORMONE 1.42 uIU/mL (0.55-4.78)
[2023-05-23 20:05] VITALS: BP 140/53; PULSE 61; RESP 23; TEMP 98.1
[2023-05-23] MEDS: ATORVASTATIN CALCIUM 20MG TABLET PO SCH (21:10)
[2023-05-23] MEDS: METOPROLOL TARTRATE 25MG TABLET PO SCH (21:13)
[2023-05-24 00:05] VITALS: BP 126/70; PULSE 62; RESP 15; TEMP 98.2
[2023-05-24 04:05] VITALS: BP 133/74; PULSE 70; RESP 21; TEMP 98.6
[2023-05-24 05:56] LABS: BASOPHILS % 0.9 % (0.0-2.0); DIFFERENTIAL COMMENT 0; EOSINOPHILS % 1.3 % (0.0-5.0); HEMATOCRIT. 35.5 % (42.0-52.0); HEMOGLOBIN. 12.2 g/dL (14.0-18.0); LYMPHOCYTES % 26.9 % (20.0-50.0); MEAN CORPUSCULAR HGB CONC 34.3 g/dL (31.0-37.0); MEAN CORPUSCULAR VOLUME 84.8 fL (80.0-94.0); MEAN PLATELET VOLUME 10.7 fl (7.4-10.4); MONOCYTES % 5.7 % (2.0-8.0); NEUTROPHILS % 65.2 % (40.0-76.0); PLATELET 153 x1000/uL (130-400); RED BLOOD CELL COUNT 4.19 mill/uL (4.7-6.1); RED CELL DISTRIBUTION WIDTH 17.3 % (11.6-14.6); WHITE BLOOD COUNT 6.1 x1000/uL (4.5-11.0)
[2023-05-24 06:28] LABS: CALCIUM 9.2 mg/dL (8.7-10.4); CARBON DIOXIDE 24 mEq/L (21-32); CHLORIDE 109 mEq/L (98-107); CREATININE 0.8 mg/dL (0.6-1.3); GLUCOSE 97 mg/dL (70-105); POTASSIUM 4.1 mEq/L (3.5-5.1); SODIUM 140 mEq/L (136-145); TROPONIN I HIGH SENSITIVITY 4 ng/L (3.0-53); UREA NITROGEN BLOOD 14 mg/dL (9-23)
[2023-05-24 08:00] VITALS: BP 144/81; PULSE 57; RESP 20; TEMP 97.7
[2023-05-24 12:00] VITALS: BP 119/69; PULSE 61; RESP 20; TEMP 97.5
[2023-05-24] MEDS: AMLODIPINE 5MG TABLET PO SCH (13:16)
[2023-05-24 16:00] VITALS: BP 121/69; PULSE 58; RESP 20; TEMP 97.6
[2023-05-24 20:00] VITALS: BP_SYST 128; BP_SYST 141; BP_SYST 153; BP_DIAS 59; BP_DIAS 73; BP_DIAS 83; PULSE 59; RESP 18; TEMP 98.3
[2023-05-25] VITALS: BP 148/60; PULSE 74; RESP 21; TEMP 98.2
[2023-05-25 04:00] VITALS: BP 117/69; PULSE 64; RESP 16; TEMP 98.2
[2023-05-25 08:00] VITALS: BP_SYST 112; BP_SYST 126; BP_SYST 148; BP_DIAS 68; BP_DIAS 78; BP_DIAS 85; PULSE 70; RESP 26; TEMP 98.2
[2023-05-25 08:10] LABS: BASOPHILS % 1.1 % (0.0-2.0); DIFFERENTIAL COMMENT 0; EOSINOPHILS % 1.7 % (0.0-5.0); HEMATOCRIT. 38.6 % (42.0-52.0); HEMOGLOBIN. 13.1 g/dL (14.0-18.0); LYMPHOCYTES % 21.9 % (20.0-50.0); MEAN CORPUSCULAR HGB CONC 33.9 g/dL (31.0-37.0); MEAN CORPUSCULAR VOLUME 85.6 fL (80.0-94.0); MEAN PLATELET VOLUME 11.2 fl (7.4-10.4); MONOCYTES % 5.4 % (2.0-8.0); NEUTROPHILS % 69.9 % (40.0-76.0); PLATELET 177 x1000/uL (130-400); RED CELL DISTRIBUTION WIDTH 17.3 % (11.6-14.6)
[2023-05-25 08:23] LABS: CALCIUM 9.6 mg/dL (8.7-10.4); CARBON DIOXIDE 26 mEq/L (21-32); CHLORIDE 110 mEq/L (98-107); CREATININE 0.8 mg/dL (0.6-1.3); GLUCOSE 87 mg/dL (70-105); POTASSIUM 4.4 mEq/L (3.5-5.1); SODIUM 141 mEq/L (136-145); UREA NITROGEN BLOOD 13 mg/dL (9-23)
[2023-05-25 12:00] VITALS: BP 126/68; PULSE 69; RESP 16; TEMP 98
[2023-05-25 16:00] VITALS: BP 126/68; PULSE 67; RESP 25; TEMP 98.3
[2023-05-25 20:00] VITALS: BP 126/76; PULSE 64; RESP 19; TEMP 98
[2023-05-25] MEDS: ATORVASTATIN CALCIUM 20MG TABLET PO SCH (21:52)
[2023-05-26] VITALS (7 sets, daily range): BP systolic 106–142; BP diastolic 47–82; PULSE 71–99; RESP 14–24; TEMP 97–98.6
[2023-05-26] MEDS: DEXT 5%/0.45% NACL 1000ML 1,000 ML IV SCH
[2023-05-26 07:46] LABS: BASOPHILS % 0.5 % (0.0-2.0); DIFFERENTIAL COMMENT 0; EOSINOPHILS % 1.7 % (0.0-5.0); HEMATOCRIT. 41.4 % (42.0-52.0); HEMOGLOBIN. 13.7 g/dL (14.0-18.0); LYMPHOCYTES % 23.3 % (20.0-50.0); MEAN CORPUSCULAR HEMOGLOBIN 28.9 pg (28.0-32.0); MEAN CORPUSCULAR VOLUME 87.6 fL (80.0-94.0); MEAN PLATELET VOLUME 10.3 fl (7.4-10.4); MONOCYTES % 5.3 % (2.0-8.0); NEUTROPHILS % 69.2 % (40.0-76.0); PLATELET 177 x1000/uL (130-400); RED BLOOD CELL COUNT 4.73 mill/uL (4.7-6.1); RED CELL DISTRIBUTION WIDTH 17.4 % (11.6-14.6); WHITE BLOOD COUNT 6.5 x1000/uL (4.5-11.0)
[2023-05-26] MEDS ORDERED: ACET-2708 PO (08:19)
[2023-05-26] MEDS: NITROGLYCERIN SPRAY/4.9GM CAN TL ONE (08:25)
[2023-05-26] MEDS ORDERED: NITROGLYCERIN SPRAY/4.9GM CAN TL NR (08:30)
[2023-05-26] MEDS ORDERED: IOHEXOL-350 100 ML BOTTLE ONE ×2 (08:37→09:12)
[2023-05-26 09:07] LABS: CALCIUM 9.7 mg/dL (8.7-10.4); CARBON DIOXIDE 23 mEq/L (21-32); CHLORIDE 107 mEq/L (98-107); CHOLESTEROL 150 mg/dL (<200); CREATININE 0.8 mg/dL (0.6-1.3); GLUCOSE 99 mg/dL (70-105); HDL CHOLESTEROL 48 mg/dL (>55); LDL CHOLESTEROL 88 mg/dL (5-100); POTASSIUM 4.3 mEq/L (3.5-5.1); SODIUM 139 mEq/L (136-145); TRIGLYCERIDE 94 mg/dL (0-150); UREA NITROGEN BLOOD 13 mg/dL (9-23)
[2023-05-26] MEDS: ENOXAPARIN 40MG/0.4ML SYR SUBCUT NR (20:11)
[2023-05-27] VITALS (7 sets, daily range): BP systolic 103–147; BP diastolic 56–104; PULSE 72–97; RESP 11–28; TEMP 97.1–98.9; O2SAT 97
[2023-05-27] MEDS: SODIUM CHLORIDE 0.45% 1,000 ML IV ONE ×2 (05:04→12:38)
[2023-05-27 06:28] LABS: BASOPHILS % 1.1 % (0.0-2.0); DIFFERENTIAL COMMENT 0; EOSINOPHILS % 1.7 % (0.0-5.0); HEMATOCRIT. 39.1 % (42.0-52.0); HEMOGLOBIN. 13.3 g/dL (14.0-18.0); LYMPHOCYTES % 21.8 % (20.0-50.0); MEAN CORPUSCULAR HEMOGLOBIN 28.8 pg (28.0-32.0); MEAN CORPUSCULAR HGB CONC 33.9 g/dL (31.0-37.0); MEAN CORPUSCULAR VOLUME 84.7 fL (80.0-94.0); MEAN PLATELET VOLUME 9.9 fl (7.4-10.4); MONOCYTES % 6.2 % (2.0-8.0); NEUTROPHILS % 69.2 % (40.0-76.0); PLATELET 178 x1000/uL (130-400); RED BLOOD CELL COUNT 4.62 mill/uL (4.7-6.1); RED CELL DISTRIBUTION WIDTH 17.2 % (11.6-14.6); WHITE BLOOD COUNT 6.5 x1000/uL (4.5-11.0)
[2023-05-27 07:30] LABS: CALCIUM 9.5 mg/dL (8.7-10.4); CARBON DIOXIDE 23 mEq/L (21-32); CHLORIDE 108 mEq/L (98-107); CREATININE 0.8 mg/dL (0.6-1.3); GLUCOSE 100 mg/dL (70-105); POTASSIUM 4.2 mEq/L (3.5-5.1); SODIUM 138 mEq/L (136-145); UREA NITROGEN BLOOD 16 mg/dL (9-23)
[2023-05-27] MEDS ORDERED: IODIXANOL 320MG/ML 100 ML BOTTLE IV ONE (11:02)
[2023-05-27] MEDS ORDERED: HEPARIN 1000 UNITS/ML 10ML ONE (11:02)
[2023-05-27] MEDS ORDERED: ASPIRIN/SOD BICARB/CITRIC ACID 324MG TAB EFF ONE (11:17)
[2023-05-27] MEDS ORDERED: MIDAZOLAM HCL 2 MG/2 ML VIAL ONE (11:23)
[2023-05-27] MEDS ORDERED: LIDOCAINE HCL 1% 20ML VIAL (Pyxis) INJ ONE (11:23)
[2023-05-27] MEDS ORDERED: FENTANYL CITRATE/PF 50MCG/ML 2ML VIAL ONE (11:23)
[2023-05-27] MEDS ORDERED: MORPHINE SULFATE 2 MG/ML CPJ (NOT FOR IM USE) IV PRN (12:15)
[2023-05-27] MEDS ORDERED: ATROPINE SULFATE 1MG/10ML SYR IV PRN (12:15)
[2023-05-27] MEDS ORDERED: ONDANSETRON HCL 4MG/2ML INJ IV PRN (12:15)
[2023-05-27] MEDS ORDERED: ACETAMINOPHEN 325MG TABLET PO PRN (12:15)
[2023-05-27] MEDS ORDERED: NALOXONE HCL 0.4MG/ML VIAL IV PRN (12:30)
== END 2023-05-27 21:30 | disposition home or self-care (01) | DRG 74 ==
LOC: ER 13:40 → 3WST 16:20 → EDBEDREQ 16:32 → EDBEDREQTM 16:32
PROVIDERS: ADMIT Internal Medicine; ATTEND Internal Medicine
PROC: 4A023N7 Measurement of Cardiac Sampling and Pressure, Left Heart, Percutaneous Approach (ICD-10-PCS; principal; 2023-05-27)
PROC: B2111ZZ Fluoroscopy of Multiple Coronary Arteries using Low Osmolar Contrast (ICD-10-PCS; 2023-05-27)
DX: G90.8 Other disorders of autonomic nervous system (principal); T44.7X5A Adverse effect of beta-adrenoreceptor antagonists, initial encounter; D64.9 Anemia, unspecified; E78.5 Hyperlipidemia, unspecified; I10 Essential (primary) hypertension; J44.89 Other specified chronic obstructive pulmonary disease; Z79.82 Long term (current) use of aspirin; Z79.899 Other long term (current) drug therapy; Z86.73 Personal history of transient ischemic attack (TIA), and cerebral infarction without residual deficits; Z86.718 Personal history of other venous thrombosis and embolism; Y92.89 Other specified places as the place of occurrence of the external cause
CPT/HCPCS: 36415; 71045; 71275; 75571; 80048; 80053; 80061; 80305; 81003; 82550; 82553; 83036; 83880; 84439; 84443; 84481; 84484; 85025; 86705; 87340; 93005; 93306; 93458; 93880; 93970; 99285; C1887; C1893; J1644; J1650; J2250; J3010; J3490; J7030; Q9967